=== PATIENT | male | born 1955 | race Caucasian/White ===

== ENCOUNTER 2017-04-09 12:14 | Inpatient (IN) | payer OTHER ==
[~2017-04-09] VITALS: Ht 182.9 cm; Wt 83.0 kg
[2017-04-09 12:15] VITALS: BP_SYST 102
[2017-04-09] MEDS ORDERED: ALBU8.5H8 INH (12:27)
[2017-04-09] MEDS ORDERED: NEU300 PO (12:27)
[2017-04-09] MEDS ORDERED: BUDE6.9H INH (12:27)
[2017-04-09] MEDS ORDERED: BACL10TA PO (12:27)
[2017-04-09] MEDS ORDERED: FINA5TAB3 PO (12:27)
[2017-04-09] MEDS ORDERED: LISI-209 PO (12:27)
[2017-04-09] MEDS ORDERED: LIP10 PO (12:27)
[2017-04-09] MEDS ORDERED: TAMS-11 PO (12:27)
[2017-04-09] MEDS ORDERED: CLOP75TA2 PO (12:27)
[2017-04-09] MEDS ORDERED: PARO-41 PO (12:27)
[2017-04-09] MEDS ORDERED: NACL 0.9% 1,000 ML IV ONE ×2 (13:00→17:30)
[2017-04-09 13:03] LABS: BASOPHILS % (AUTO) 0.6 % (0.0-2.0); EOSINOPHILS # (AUTO) 0.2 K/uL (0.0-0.4); EOSINOPHILS % (AUTO) 4.1 % (0.0-4.0); HEMATOCRIT 36.7 % (36-54); HEMOGLOBIN 12.2 g/dL (14.0-18.0); LYMPHOCYTES # (AUTO) 1.1 K/uL (1.0-5.5); LYMPHOCYTES % (AUTO) 24.9 % (20.5-51.5); MEAN CORPUSCULAR HEMOGLOBIN 33 pg (27-31); MEAN CORPUSCULAR HGB CONC 33 % (32-36); MEAN CORPUSCULAR VOLUME 98 fL (79.0-98.0); MONOCYTES # (AUTO) 0.2 K/uL (0.0-1.0); MONOCYTES % (AUTO) 5.5 % (1.7-9.3); NEUTROPHILS % (AUTO) 64.9 % (40.0-70.0); PLATELET COUNT (AUTO) 126 K/uL (130-430); RED BLOOD CELL COUNT(AUTO) 3.75 MIL/uL (4.2-6.2); RED CELL DISTRIBUTION WIDTH 12.7 % (9.0-15.0); WHITE BLOOD COUNT (AUTO) 4.5 K/uL (4.8-10.8)
[2017-04-09 13:15] LABS: INR 1.1 (0.80-1.20)
[2017-04-09 13:40] LABS: ANION GAP 8 (5-15); CHLORIDE 107 mmol/L (98-107); CREATININE 1.24 mg/dL (0.55-1.30); GLUCOSE 125 mg/dL (70-99); POTASSIUM 4.8 mmol/L (3.5-5.1); SODIUM SERUM 140 mmol/L (136-145); UREA NITROGEN, BLOOD 24 mg/dL (8-21)
[2017-04-09 13:42] LABS: GFR AFRICAN AMERICAN 75 mL/min (>90)
[2017-04-09 13:47] LABS: ALANINE AMINOTRANSFERASE 26 U/L (12-78); ASPARTATE AMINOTRANSFERASE 19 U/L (10-37); TOTAL BILIRUBIN 0.4 mg/dL (0.0-1.0)
[2017-04-09 13:48] LABS: ACETAMINOPHEN < 1 ug/mL (1-30); ALCOHOL, BLOOD < 3 mg/dL (<10)
[2017-04-09 16:41] LABS: BILIRUBIN,URINE NEGATIVE (NEGATIVE); BLOOD, URINE NEGATIVE (NEGATIVE); CLARITY/URINE CLEAR (CLEAR); COLOR,URINE YELLOW (YELLOW); GLUCOSE,URINE NEGATIVE (NEGATIVE); KETONES,URINE TRACE (NEGATIVE); LEUKOCYTE ESTERASE ,URINE NEGATIVE (NEGATIVE); NITRITE, URINE NEGATIVE (NEGATIVE); PROTEIN URINE NEGATIVE (NEGATIVE); UROBILINOGEN,URINE 0.2 (0.2-1.0)
[2017-04-09 16:57] LABS: BARBITURATE, URINE NEGATIVE (NEG <=200); BENZODIAZEPINE, URINE NEGATIVE (NEG <=150); CANNABINOID, URINE NEGATIVE (NEG <=50); COCAINE, URINE NEGATIVE (NEG <=150); METHAMPHETAMINES SCREEN,URINE NEGATIVE (NEG <=500); OPIATE, URINE NEGATIVE (NEG <=100); PHENCYCLIDINE SCREEN,URINE NEGATIVE (NEG <=25); UR TRICYCLIC ANTIDEPRESSANTS NEGATIVE (NEG <=300); URINE AMPHETAMINE NEGATIVE (NEG <=500); URINE METHADONE NEGATIVE (NEG <=200); URINE OXYCODONE SCREEN NEGATIVE (NEG <=100); URINE PROPOXYPHENE SCREEN NEGATIVE (NEG <=300)
[2017-04-09 17:48] VITALS: BP_SYST 136
[2017-04-09 18:45] VITALS: BP_SYST 129
[2017-04-09 19:00] VITALS: BP_SYST 116
[2017-04-09 20:00] VITALS: BP_SYST 116
[2017-04-09] MEDS ORDERED: IPRATROPIUM BROM 0.5 MG/2.5 ML VIAL.NEB (ATROVENT) INH PRN (22:45)
[2017-04-09] MEDS ORDERED: INSULIN REGULAR, HUMAN 100 UNITS/ML, 10 ML VIAL (novoLIN R) SUBCUT PRN (22:45)
[2017-04-09] MEDS ORDERED: ALBUTEROL SULFATE 0.083% 2.5 MG/3 ML VIAL.NEB INH PRN (22:45)
[2017-04-09] MEDS ORDERED: DEXTROSE 50% JECT 50 ML DISP.SYRIN IVP PRN (22:45)
[2017-04-10] VITALS (7 sets, daily range): BP systolic 109–132
[2017-04-10 07:55] LABS: BASOPHILS % (AUTO) 0.7 % (0.0-2.0); EOSINOPHILS # (AUTO) 0.3 K/uL (0.0-0.4); EOSINOPHILS % (AUTO) 5.4 % (0.0-4.0); HEMATOCRIT 35.9 % (36-54); HEMOGLOBIN 12.4 g/dL (14.0-18.0); LYMPHOCYTES # (AUTO) 1.5 K/uL (1.0-5.5); LYMPHOCYTES % (AUTO) 27.4 % (20.5-51.5); MEAN CORPUSCULAR HEMOGLOBIN 34 pg (27-31); MEAN CORPUSCULAR HGB CONC 35 % (32-36); MEAN CORPUSCULAR VOLUME 98 fL (79.0-98.0); MONOCYTES # (AUTO) 0.3 K/uL (0.0-1.0); MONOCYTES % (AUTO) 5.3 % (1.7-9.3); NEUTROPHILS # (AUTO) 3.2 K/uL (1.8-7.7); NEUTROPHILS % (AUTO) 61.2 % (40.0-70.0); PLATELET COUNT (AUTO) 133 K/uL (130-430); RED BLOOD CELL COUNT(AUTO) 3.67 MIL/uL (4.2-6.2); RED CELL DISTRIBUTION WIDTH 12.6 % (9.0-15.0); WHITE BLOOD COUNT (AUTO) 5.4 K/uL (4.8-10.8)
[2017-04-10 08:07] LABS: ANION GAP 7 (5-15); CALCIUM 8.9 mg/dL (8.4-11.0); CHLORIDE 106 mmol/L (98-107); CREATININE 1.07 mg/dL (0.55-1.30); GLUCOSE 97 mg/dL (70-99); POTASSIUM 4.6 mmol/L (3.5-5.1); SODIUM SERUM 141 mmol/L (136-145); UREA NITROGEN, BLOOD 20 mg/dL (8-21)
[2017-04-10 08:17] LABS: ALANINE AMINOTRANSFERASE 24 U/L (12-78); ALBUMIN 3.8 g/dL (3.4-4.8); ASPARTATE AMINOTRANSFERASE 22 U/L (10-37); TOTAL BILIRUBIN 0.3 mg/dL (0.0-1.0)
[2017-04-10 08:26] LABS: GFR AFRICAN AMERICAN 89 mL/min (>90)
[2017-04-10] MEDS: FINASTERIDE 5 MG TABLET (PROSCAR) PO SCH (08:46)
[2017-04-10] MEDS: TAMSULOSIN HCL 0.4 MG CAP PO SCH ×2 (08:46→20:51)
[2017-04-10 11:18] LABS: THYROID STIMULATING HORMONE 0.81 uIu/mL (0.34-4.82)
[2017-04-10] MEDS ORDERED: CLOPIDOGREL BISULFATE 75 MG TABLET PO SCH (21:00)
[2017-04-10] MEDS ORDERED: ATORVASTATIN 10 MG TABLET PO SCH (21:00)
[2017-04-11 00:31] VITALS: BP_SYST 118
[2017-04-11 05:48] VITALS: BP_SYST 120
[2017-04-11 07:30] VITALS: BP_SYST 125
[2017-04-11] MEDS: FINASTERIDE 5 MG TABLET (PROSCAR) PO SCH (08:47)
[2017-04-11] MEDS: TAMSULOSIN HCL 0.4 MG CAP PO SCH (08:50)
[2017-04-11 10:11] VITALS: BP_SYST 107; BP_SYST 117
[2017-04-11 12:23] VITALS: BP_SYST 117
== END 2017-04-11 15:52 | disposition home or self-care (01) | DRG 68 ==
LOC: SED 12:14 → STU 17:17
PROVIDERS: ADMIT Internal Medicine; ATTEND Internal Medicine Hospice and Palliative Medicine
DX: I65.23 Occlusion and stenosis of bilateral carotid arteries (principal); I69.951 Hemiplegia and hemiparesis following unspecified cerebrovascular disease affecting right dominant side; J44.9 Chronic obstructive pulmonary disease, unspecified; E78.00 Pure hypercholesterolemia, unspecified; F17.210 Nicotine dependence, cigarettes, uncomplicated; F32.9 Major depressive disorder, single episode, unspecified; E78.5 Hyperlipidemia, unspecified; E11.9 Type 2 diabetes mellitus without complications; I10 Essential (primary) hypertension; N40.0 Benign prostatic hyperplasia without lower urinary tract symptoms; Z88.5 Allergy status to narcotic agent; Z88.8 Allergy status to other drugs, medicaments and biological substances; Z91.048 Other nonmedicinal substance allergy status; I69.920 Aphasia following unspecified cerebrovascular disease; Z79.02 Long term (current) use of antithrombotics/antiplatelets; Z71.6 Tobacco abuse counseling
CPT/HCPCS: 36415; 70450-TC; 70544; 70547; 70551; 71010; 80053; 80061; 80307; 81003; 82550-TC; 82962; 83605; 83880; 84443-TC; 84484; 85025; 85610-TC; 85730-TC; 93005; 93306; 93880; 94760; 95816; 96360; 99285; G0480; G0481; G0482; J7030